=== PATIENT | female | born 1980 | race Caucasian/White ===

== ENCOUNTER 2024-01-04 09:38 | Outpatient (OUT) | payer OTHER, SELFPAY ==
--- NOTE | 2024-01-04 09:47 | MM_ITS ---
Patient Name: SARATH CORRIGAN MR#: [id number] : 1980 Exam Date: 01/04/2024 Ordering Doctor: DR MARY ELLEN FRANCO RADIOLOGY REPORT PROCEDURE: MM TOMOSYNTHESIS SCREENING BI COMPARISON: MG MAMM SCREEN 3D CHRISSIE CAD, 11/16/2022. MG MAMM SCREEN 3D CHRISSIE CAD, 08/13/2021. MG MAMM SCREEN CHRISSIE W CAD, 02/26/2020. INDICATIONS: Screening Calculator Name NCI Breast Cancer Risk Assessment Tool 5 Year Breast Cancer Risk 1.40% Lifetime Breast Cancer Risk 15.70% Personal Breast Cancer No Personal Ovarian Cancer No Treatments None Family Cancers Mother with breast cancer at age 58. LOCATION: [facility] BREAST COMPOSITION: There are scattered areas of fibroglandular density. FINDINGS: DIAGNOSTIC CATEGORY 1--NEGATIVE. RIGHT BREAST: No significant suspicious finding. No significant change has occurred. LEFT BREAST: No significant suspicious finding. No significant change has occurred. RECOMMENDATIONS: ROUTINE MAMMOGRAM AND CLINICAL EVALUATION IN 12 MONTHS. PLEASE NOTE: A NORMAL MAMMOGRAM DOES NOT EXCLUDE THE POSSIBILITY OF BREAST CANCER. A CLINICALLY SUSPICIOUS PALPABLE LUMP SHOULD BE BIOPSIED. Dictated by: Blake Sandoval M.D. on 01/04/2024 at 15:46 Approved by: Blake Sandoval M.D. on 01/04/2024 at 15:48
== END 2024-01-04 09:39 | disposition home or self-care (01) ==
LOC: MAMMO 09:41
PROVIDERS: PCP Nurse Practitioner Family; Visit Provider Nurse Practitioner Family
DX: Z12.31 Encounter for screening mammogram for malignant neoplasm of breast (principal); Z80.3 Family history of malignant neoplasm of breast
CPT/HCPCS: 77063; 77067

== ENCOUNTER 2025-01-06 12:52 | Outpatient (OUT) | payer OTHER, SELFPAY ==
--- NOTE | 2025-01-06 13:00 | MM_ITS ---
Patient Name: SARATH CORRIGAN MR#: [id number] : 1980 Exam Date: 01/06/2025 Ordering Doctor: SADIE GOMEZ RADIOLOGY REPORT PROCEDURE: MM TOMOSYNTHESIS SCREENING BI COMPARISON: MM TOMOSYNTHESIS SCREENING BI, 01/04/2024. MG MAMM SCREEN 3D CHRISSIE CAD, 11/16/2022. MG MAMM SCREEN 3D CHRISSIE CAD, 08/13/2021. MG MAMM SCREEN CHRISSIE W CAD, 02/26/2020. INDICATIONS: Screening Calculator Name NCI Breast Cancer Risk Assessment Tool 5 Year Breast Cancer Risk 1.50% Lifetime Breast Cancer Risk 15.30% Personal Breast Cancer No Personal Ovarian Cancer No Treatments None Family Cancers Mother with breast cancer at age 58. LOCATION: [facility] BREAST COMPOSITION: There are scattered areas of fibroglandular density. FINDINGS: DIAGNOSTIC CATEGORY 1--NEGATIVE. RIGHT BREAST: No significant suspicious finding. LEFT BREAST: No significant suspicious finding. RECOMMENDATIONS: ROUTINE MAMMOGRAM AND CLINICAL EVALUATION IN 12 MONTHS. PLEASE NOTE: A NORMAL MAMMOGRAM DOES NOT EXCLUDE THE POSSIBILITY OF BREAST CANCER. A CLINICALLY SUSPICIOUS PALPABLE LUMP SHOULD BE BIOPSIED. Dictated by: Guanako Lim DO on 01/06/2025 at 16:40 Approved by: Guanako Lim DO on 01/06/2025 at 16:41
== END 2025-01-06 12:53 | disposition home or self-care (01) ==
LOC: MAMMO 12:52
PROVIDERS: PCP Nurse Practitioner Family; Visit Provider Nurse Practitioner Family
DX: Z12.31 Encounter for screening mammogram for malignant neoplasm of breast (principal); Z80.3 Family history of malignant neoplasm of breast
CPT/HCPCS: 77063; 77067